=== PATIENT | female | born 1960 | race Caucasian/White ===

== ENCOUNTER 2022-06-25 11:11 | Emergency (ER) | payer MEDICARE ==
[2022-06-25 11:55] LABS: Absolute Neutrophil Ct (ANC) 4.06 x10^3/uL (1.4-6.9); Basophil (Absolute #) 0.02 x10^3/uL (0-0.4); Eosinophil % 2.8 % (0.00-5.0); Eosinophil (Absolute #) 0.17 x10^3/uL (0-0.5); Hematocrit 42.6 % (35-47); Hemoglobin 13.7 g/dL (12.0-16.0); Lymphocyte (Absolute #) 1.44 x10^3/uL (1.0-4.6); Lymphocytes % 23.5 % (24.0-44.0); Mean Cell Volume 91.6 fL (78-100); Mean Corpuscular Hemoglobin 29.5 pg (26-32); Mean Corpuscular Hgb Concent. 32.2 g/dL (32-36); Mean Platelet Volume 9.9 fL (7.5-11.0); Monocyte (Absolute #) 0.42 x10^3/uL (0.0-1.3); Monocytes % 6.9 % (0.0-12.0); Neutrophil % 66.2 % (36.0-66.0); Platelet Count 360 x10^3/uL (150-450); Red Blood Count 4.65 x10^6/uL (4.1-5.4); Red Cell Distribution Width 13.3 % (11.5-14.0); White Blood Count 6.1 x10^3/uL (4.0-10.5)
[2022-06-25 12:11] LABS: INR 0.95 (0.8-3.0); PROTIME 10.1 SECONDS (9.4-12.5); PTT 27.6 SECONDS (25.1-36.5)
--- NOTE | 2022-06-25 12:15 | ERPHSYRPT ---
- History of Present Illness Source: patient Exam Limitations: other (Poor historian) Patient Subjective Stated Complaint: nose bleed Triage Nursing Assessment: Patient ambulated back to ED and transferred self to bed. Patient A+O x3. Patient's skin pink, war and dry. Patient complains of nose bleed out of left nare that started one hour prior to coming to ED. Patient de nies recent trauma to nose. No bleeding noted out of left nare currently. Patient denies pain or discomfort. Physician History: 62 yo wf states L epistaxis w posterior drainage x 1 hour. Pt has no active drainage in ER and denies ASA/plavix/anticoagulant use. Trauma is also denied. Timing/Duration: abrupt onset Severity: mild ENT Location: nose Prearrival Treatment: no prearrival treatment Modifying Factors: Improves With: nothing Associated Symptoms: denies symptoms, epistaxis Allergies/Adverse Reactions: No Known Drug Allergies Allergy (Verified 06/25/22 11:23) Home Medications: estradioL [Estradiol Transdermal Patch] 1 each TD WEEKLY 03/13/12 [History] Hx Influenza Vaccination/Date Given: Yes Hx Pneumococcal Vaccination/Date Given: Yes Immunizations Up to Date: Yes Travel Risk - International Travel Have you traveled outside of the country in past 3 weeks: No - Coronavirus Screening Are you exhibiting any of the following symptoms?: No Close contact with a COVID-19 positive Pt in past 14-21 Days: No - Vaccine Status Have you recieved a Covid-19 vaccination: Yes 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 - Vaccination Dates Date of 2cond Vaccination (if applicable): na - Review of Systems Constitutional: No Symptoms Eyes: No Symptoms Ears, Nose, & Throat: No Symptoms, Epistaxis Respiratory: No Symptoms Cardiac: No Symptoms Abdominal/Gastrointestinal: No Symptoms Genitourinary Symptoms: No Symptoms Musculoskeletal: No Symptoms Skin: No Symptoms Neurological: No Symptoms Psychological: No Symptoms Endocrine: No Symptoms Hematologic/Lymphatic: No Symptoms Immunological/Allergic: No Symptoms - Past Medical History Pertinent Past Medical History: Yes Neurological History: Other ENT History: No Pertinent History Cardiac History: No Pertinent History Respiratory History: Bronchitis Endocrine Medical History: No Pertinent History Musculoskeletal History: No Pertinent History GI Medical History: Diverticulitis History: No Pertinent History Psycho-Social History: No Pertinent History Female Reproductive Disorders: No Pertinent History Other Medical History: hx MS - Past Surgical History Past Surgical History: Yes Neuro Surgical History: No Pertinent History Cardiac: No Pertinent History Respiratory: No Pertinent History Gastrointestinal: No Pertinent History Genitourinary: No Pertinent History Musculoskeletal: Orthopedic Surgery Female Surgical History: Hysterectomy Other Surgical History: Joel feet hammer toe surgery and toe/ligament release,sinus surgery and tonsil tag after t&a - Social History Smoking Status: Never smoker Exposure to second hand smoke: No Drug Use: none Patient Lives Alone: No Significant Family History: no pertinent family hx - Nursing Vital Signs Nursing Vital Signs: Initial Vital Signs Temperature 97.8 F 06/25/22 11:26 Pulse Rate 66 06/25/22 11:26 Respiratory Rate 18 06/25/22 11:26 Blood Pressure 192/93 06/25/22 11:26 O2 Sat by Pulse Oximetry 97 06/25/22 11:26 Pain Scale Pain Intensity 0 Hypertensive - Physical Exam General Appearance: no apparent distress Eye Exam: bilateral eye: normal inspection, PERRL, EOMI Ear Exam: bilateral ear: auricle normal, canal normal, TM normal Nasal Exam: normal inspection, No active bleeding, No discharge, No dried blood, No foreign body Throat Exam: normal (Very small amount of dried blood) Neck Exam: normal inspection, non-tender, supple, full range of motion, trachea midline, No JVD Cardiovascular/Respiratory Exam: normal breath sounds, regular rate/rhythm, heart sounds normal Abdominal Exam: non-tender, soft Neurologic Exam: alert, oriented x 3, cooperative, media buyer II-XII nml as tested, normal mood/affect, nml cerebellar function, nml station & gait, sensation nml, No motor deficits, No sensory deficit Skin Exam: normal color, warm, dry SpO2 Interpretation: normal SpO2: 97 O2 Delivery: Room Air - Course Nursing assessment & vital signs reviewed: Yes Ordered Tests: Active Orders 24 hr Category Date Time Status CBC W DIFF Stat Lab 06/25/22 11:50 Completed PROTIME WITH INR Stat Lab 06/25/22 11:50 Completed PTT Stat Lab 06/25/22 11:50 Completed Lab/Rad Data: Laboratory Result Diagrams 06/25/22 11:50 Laboratory Results 06/25/22 06/25/22 Range/Units 11:50 11:50 WBC 6.1 (4.0-10.5) x10^3/uL RBC 4.65 (4.1-5.4) x10^6/uL Hgb 13.7 (12.0-16.0) g/dL Hct 42.6 (35-47) % MCV 91.6 (78-100) fL MCH 29.5 (26-32) pg MCHC 32.2 (32-36) g/dL RDW 13.3 (11.5-14.0) % Plt Count 360 (150-450) x10^3/uL MPV 9.9 (7.5-11.0) fL Gran % 66.2 H (36.0-66.0) % Immature Gran % (Auto) 0.3 (0.00-0.4) % Nucleat RBC Rel Count 0.0 (0.00-0.1) % Eos # (Auto) 0.17 (0-0.5) x10^3/uL Immature Gran # (Auto) 0.02 (0.00-0.03) x10^3u/L Absolute Lymphs (auto) 1.44 (1.0-4.6) x10^3/uL Absolute Monos (auto) 0.42 (0.0-1.3) x10^3/uL Absolute Nucleated RBC 0.00 (0.00-0.01) x10^3u/L Lymphocytes % 23.5 L (24.0-44.0) % Monocytes % 6.9 (0.0-12.0) % Eosinophils % 2.8 (0.00-5.0) % Basophils % 0.3 (0.0-0.4) % Absolute Granulocytes 4.06 (1.4-6.9) x10^3/uL Basophils # 0.02 (0-0.4) x10^3/uL PT 10.1 (9.4-12.5) SECONDS INR 0.95 (0.8-3.0) APTT 27.6 (25.1-36.5) SECONDS - Progress Progress Note: 06/25/22 12:45 No active epistaxis in ER Counseled pt/family regarding: lab results, diagnosis, need for follow-up - Departure Departure Disposition: Home Clinical Impression: Epistaxis Condition: Stable Critical Care Time: No Referrals: KOREY GARCIA [Primary Care Provider] - Follow up/PCP as directed Instructions: Nosebleeds (DC) Additional Instructions: Do not blow nose for 24 hours If bleeding restarts, hold pressure for 30 minutes before coming to ER Return to ER for bleeding that does not stop after 30 minutes
[2022-06-25 12:58] VITALS: BP 172/96; PULSE 62
[2022-06-25 14:48] VITALS: O2SAT 97
== END 2022-06-25 12:58 | disposition home or self-care (01) ==
LOC: ED 11:11
DX: R04.0 Epistaxis (principal); Z79.899 Other long term (current) drug therapy; Z20.828 Contact with and (suspected) exposure to other viral communicable diseases
CPT/HCPCS: 36415; 85025; 85610; 85730; 99282

== ENCOUNTER 2022-07-19 05:46 | Day surgery (SDC) | payer MEDICARE ==
[2022-07-19] MEDS ORDERED: Lactated Ringers 1,000 ML IV SCH (06:30)
[2022-07-19] MEDS ORDERED: DIPRIVAN 200 MG/20 ML IV ONE (07:53)
[2022-07-19] MEDS ORDERED: Xylocaine-Mpf 2% 5 Ml Vial ONE (07:53)
[2022-07-19] MEDS ORDERED: Versed 2 MG/2 ML Injection ONE (07:53)
[2022-07-19 09:09] VITALS: O2SAT 96
[2022-07-19 09:10] VITALS: BP 122/75; PULSE 60
--- NOTE | 2022-07-19 13:14 | OP ---
SURGERY DATE/TIME: 07/19/2022 0758 PREOPERATIVE DIAGNOSIS: Screening exam, history of polyps. POSTOPERATIVE DIAGNOSIS: Sigmoid diverticulosis otherwise normal colon. PROCEDURE: Colonoscopy. SURGEON: Dr. Rene Holliday. ANESTHESIA: MAC. Medications given by anesthesia department. HISTORY: The patient is a 62-year-old white female presenting now for screening colonoscopy. She reports that it has been over ten years since her previous exam. She reports she has had two previous exams both of which tiny polyps were removed. The patient was felt the need to have endoscopic evaluation. She was appraised of the risks of the procedure including the risk of perforation, phlebitis, untoward reaction to medication, bleeding and missed lesions. The patient verbalized her understanding and desired to have the procedure performed. DESCRIPTION OF PROCEDURE: The patient was given the medications by the anesthesia department. She had continuous pulse oximetry, ECG monitoring, intermittent blood pressure monitoring during the examination. She was placed in the left lateral decubitus position. A digital rectal examination was performed and revealed normal anal sphincter tone and no masses. The flexible Olympus pediatric colonoscope was used to intubate the rectum. A view of the colon was developed sequentially to the cecum. Upon insertion and withdrawal was noted to be moderate sigmoid diverticulosis. No other mucosal lesions were encountered. The scope was removed from the patient who tolerated the procedure well and was sent back to outpatient recovery in good condition. The prep was noted to be fair to poor.
== END 2022-07-19 09:15 | disposition home or self-care (01) ==
LOC: SDC 05:46
PROVIDERS: ATTEND Family Medicine
DX: Z09 Encounter for follow-up examination after completed treatment for conditions other than malignant neoplasm (principal); Z86.010 Personal history of colon polyps; K57.30 Diverticulosis of large intestine without perforation or abscess without bleeding
CPT/HCPCS: J2250; J2704